=== PATIENT | male | born 1945 | race Caucasian/White ===

== ENCOUNTER 2016-06-03 10:44 | Outpatient (RCR) | payer MEDICARE, OTHER ==
--- OUTSIDE RECORDS SUMMARY | 2016-05-20 10:50 | XMS REPORT | Continuity of Care Document ---
Author Author [facility] Organization [facility] Address Unknown Phone Unavailable Care Team Providers Care Banquet Steward Name Role Phone Mavis Rao PCP [phone] Source Comments Some departments are not documenting in the electronic medical record. If you do not see the information that you expected, contact Release of Information in the Health Information Management department at [phone] for further assistance in locating additional records.[facility] Active Allergies and Adverse Reactions Allergen Noted Date Severity Reactions Comments Flexeril 04/21/2016 High HALLUCINATIONS Current Medications Prescription Sig. Disp. Refills Start End Date Status Date ondansetron (ZOFRAN) 8 mg 1 Tab every 8 hours as 90 Tab 3 06/11/19 Active tablet needed for Nausea. 16 cabozantinib(+) Take 40 mg by mouth 30 Tab 3 02/04/20 Active (CABOMETYX) 40 mg tablet daily. 16 lisinopril (PRINIVIL, Take 1 Tab by mouth 90 Tab 3 02/17/20 Active ZESTRIL) 40 mg tablet daily. 16 LORazepam (ATIVAN) 0.5 mg Take 1 Tab by mouth every 45 Tab 5 03/30/20 Active tablet 6 hours as needed for 16 Nausea. HYDROcodone/acetaminophen Take 1-2 Tabs by mouth 240 Tab 0 04/08/20 Active (+) (NORCO) 10/325 mg every 4 hours as needed 16 tablet for Pain rivaroxaban (XARELTO Take 15 mg by mouth TWICE 51 Tab 0 05/19/19 Active STARTER PACK) 15 mg (42)- daily with food for 21 17 20 mg (9) 51 tablet pack days followed by 20 mg by mouth ONCE daily with food as directed on package. dexamethasone (DECADRON) Take 2 Tabs by mouth 60 Tab 2 05/19/19 Active 4 mg tablet daily. Take with food. 17 oxyCODONE (ROXICODONE, Take 1 Tab by mouth every 150 Tab 0 05/19/19 Active OXY-IR) 15 mg tablet 3 hours as needed for 17 Pain Earliest Fill Date: 05/19/16 finasteride (PROSCAR) 5 Take 1 Tab by mouth at 90 Tab 5 02/10/2009/03 Discontin mg tablet bedtime daily. 16 17 ued cyclobenzaprine Take 1 Tab by mouth three 30 Tab 2 04/08/20 Discontin (FLEXERIL) 10 mg tablet times daily as needed for 16 17 ued Muscle Cramps. methylPREDNIsolone Take medication as 21 Tab 0 04/08/20 04/21/19 Discontin (MEDROL DOSEPAK) 4 mg directed on package for 6 16 17 ued tablet days. Take with food. enoxaparin(+) (LOVENOX) Inject 0.93 mL under the 0.93 mL 0 05/19/19 05/19/19 150 mg/mL syrg syringe skin once for 1 dose. 17 17 Active Problems Problem Noted Date Right-sided chest wall pain 04/08/2016 Overview: 04/08/2016 He is here early as he thoought he must have a new tumor. He has had terrible pain in his right pectoralis muscle for about 2 weeks. He is taking pain pills again and is constipated. CT is negative as is exam except for obvious pain when he moves the pect. I think it is muscle strain so will do medrol dose pack with flexeril and continue his pain meds. Choledocholithiasis 08/12/2015 Overview: 08/11/2015 He is having intermittent abdominal pain. He takes a hydrocodone and it resolves. He has not had this before. He has stones. We will get CT in a month. Hypertension 12/22/2014 Elevated serum creatinine 10/13/2014 [id number] 03/07/2014 Renal cell carcinoma Overview: Renal Mass Bx (07/17/2013): Clear Cell Renal Cell Carcinoma (RCC). (L) Radical Nephrectomy, (L) Colon Resection w/ Primary Anastomosis, multiple Peritoneal Mass Resection -- 08/07/2013; Dr. Alegre & Dr. Snow. 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 Scans in August 2013 showed progression of peritoneal metastatic disease. Consented to participate in clinical trial, [id number] trial "An International Phase 3 Randomized Trial of Autologous Dendritic Cell Immunotherapy (AGS-003) Plus Standard Treatment of Advanced Renal Cell Carcinoma (ADAPT). Randomized to receive Sutent alone. Began Sutent on September 27, 2013. Dose decreased to 37.5 mg in January 2014. Treatment held for several weeks in January 2014 due to perirectal abscess/fistula. Restarted February 24, 2014. Discontinued Sutent on clinical trial on September 01 due to progression of disease. Started high-dose interleukin-2 on September 29, 2014. Repeat scans in November 2014 showed significant progression of disease. Started axitinib in mid-December 2014. 04/28/2015 had to stop axitinib for awhile to have cataract surgery and felt better. Still having lots of diarrhea but not taking immodium. Will have him cut to once a day and take the immodium scheduled instead of PRN. 06/01/2015 He is generally feeling better. He takes immodium twice a day but still has some diarrhea. Agreed to yash more often. Ct shows improvement so he agrees to continue and to increase immodium. RTC in 4 weeks. 07/06/2015 - c/o hoarseness and diarrhea. Continue axitinib and return to clinic in 4 weeks. 08/11/2015 He has same symptoms and does not want to change his dose. Will reimage next month. 09/15/2015 CT scans show progression. Plan to discontinue axitinib and start nivolumab instead. 10/09/2015 Slight increase in dyspnea and chest pain - starting XRT next week. Appears dry today With high calcium - will give fluids and cycle 2 of nivolumab today and recheck CMP in 5 days. RTC in 2 weeks prior to third dose of nivolumab. 10/23/2015 Clinically stable. Completed XRT - only residual complaint is some fatigue. Continue with nivolumab and RTC in 4 weeks. 11/20/2015 Doing well. Proceed with cycle 5 of nivolumab. RTC in 1 month with labs and scans. 12/17/2015 Patient clinically feeling well. Scans show increase disease - ?psuedoprogression? Plan to continue with nivolumab and rescan in 6 weeks. 01/14/2016 Seen to evaluate dyspnea and cough. Minimal increase in symptoms. CXR does not show effusion. Plan to continue with nivolumab today and RTC in 2 weeks as scheduled with repeat scans. 02/03/2016 Scans show mixed response. Patient feeling well. Plan to continue with nivolumab and add in cabozantinib. RTC in 3 weeks with labs. 02/10/2016 Seen on unscheduled visit today as his calcium is high when checked pre nivo. He is asymptomatic except fatigue which he does not feel is worse. He would not agree to stay for admit or IV fluids. I advised him to drink lots of fluids and eat salt. He did agree to see his primary for zometa and fluids. I spoke with Dr Haven Anderson suggested 2-3 liters of normal saline and 3 mg of zometa. She will check his lab again next week and we will go from there. 02/25/2016 Started cabozantinib on 02/11/16; calcium has normalized. Continue nivolumab every 2 weeks and RTC in 4 weeks. 03/24/2016 Having more nausea and diarrhea but manageable. Labs are stable. Plan to continue current treatment. RTC in 4 weeks with labs and scans. 04/08/2016 He is here early due to new pain. CT scans show improvement in all sites of disease. Will continue current therapy. 04/21/2016 Doing well. Pain in right pectoralis muscle has resolved. Some right visual changes; will obtain MRI brain. Continue Nivo Q 2 weeks and RTC in 4 weeks. 05/19/2016 Has developed new shoulder pain as well as brain mets. Will start anti-coag for clot in left atrium. Will start dex and refer to rad onc for XRT to brain. Continue with cabo and nivolumab. Resolved Problems Problem Noted Date Resolved Date Abdominal pain 12/22/2014 06/04/2015 Ileus (HCC) 12/22/2014 05/01/2015 History of interleukin-2 treatment 10/13/2014 10/15/2014 High risk medication use 10/13/2014 10/15/2014 [id number] kidney injury (HCC) 10/02/2014 10/09/2014 SIRS (systemic inflammatory response syndrome) (HCC) 10/01/2014 10/03/2014 Encounter for long-term (current) use of high-risk medication 09/29/2014 10/03/2014 Encounter for antineoplastic immunotherapy 09/29/2014 10/03/2014 Perirectal abscess 02/13/2014 05/01/2015 Other severe protein-calorie malnutrition 08/09/2013 10/09/2014 Most Recent Encounters Date Type Specialty Providers Description 05/19/2016 [facility] Radiology Hemalatha Medina PA-C Arrived Encounter 05/19/2016 [facility] Oncology Isabell Harris MD Encounter 05/19/2016 Office Visit Oncology Isabell Harris MD Renal cell carcinoma, unspecified laterality (Primary Dx) 05/19/2016 [facility] Radiology Hemalatha Meidna PA-C Arrived Encounter 05/19/2016 [facility] Radiology Hemalatha Medina PA-C Arrived Encounter 05/19/2016 Screening Form 05/19/2016 Screening Form 05/16/2016 Telephone Oncology Isabell Harris MD Medication Follow-up 05/11/2016 Telephone Oncology Isabell Harris MD Claudication 05/10/2016 Orders Only Oncology Hemalatha Medina PA-C 05/05/2016 [facility] Oncology Isabell Harris MD Encounter 05/05/2016 [facility] Oncology Isabell Harris MD Encounter 04/26/2016 Orders Only Oncology Hemalatha Medina PA-C 04/21/2016 [facility] Oncology Isabell Harris MD Encounter 04/21/2016 Office Visit Oncology Isabell Harris MD Renal cell carcinoma, unspecified laterality (HCC) (Primary Dx) 04/21/2016 Nurse Only Oncology Isabell Harris MD Renal cell carcinoma, unspecified laterality (HCC) (Primary Dx) 04/13/2016 Telephone Oncology Isabell Harris MD Altered mental status 04/11/2016 Telephone Oncology Phillip Magana, Medication Problem MB[facility] 04/08/2016 Office Visit Oncology Isabell Harris MD Renal cell carcinoma, unspecified laterality (HCC) (Primary Dx); Right-sided chest wall pain 04/08/2016 [facility] Radiology Hemalatha Medina PA-C Encounter 04/07/2016 Hospital Oncology Isabell Harris MD Encounter 04/07/2016 Hospital Oncology Isabell Harris MD Encounter 04/05/2016 Refill Oncology Isabell Harris MD 04/04/2016 Orders Only Oncology Hemalatha Medina PA-C 04/03/2016 Documentation Oncology Cindy Clark, PHARMD 03/31/2016 Telephone Oncology Isabell Harris MD Muscle Pain 03/30/2016 Refill Oncology Isabell Harris MD 03/28/2016 Orders Only Oncology Hemalatha Medina PA-C 03/24/2016 Hospital Oncology Isabell Harris MD Encounter 03/24/2016 Office Visit Oncology Isabell Harris MD Renal cell carcinoma, unspecified laterality (HCC) (Primary Dx) 03/24/2016 Hospital Oncology Isabell Harris MD Encounter 03/16/2016 Orders Only Oncology Hemalatha Medina PA-C 03/09/2016 [facility] Oncology Hemalatha Medina PA-C Encounter 03/09/2016 [facility] Oncology Hemalatha Medina PA-C Encounter 03/01/2016 Orders Only Oncology Hemalatha Medina PA-C 02/25/2016 [facility] Oncology Hemalatha Medina PA-C Encounter 02/25/2016 Office Visit Oncology Hemalatha Medina PA-C Renal cell carcinoma, unspecified laterality (HCC) (Primary Dx) 02/25/2016 Nurse Only Oncology Hemalatha Medina PA-C Renal cell carcinoma, unspecified laterality (HCC) (Primary Dx) Immunizations Name Dates Previously Given Next Due Flu Vaccine 01/14/2016, 01/16/2014 Quadrivalent=>3 Yo (Preservative Free) Social History Tobacco Use Types Packs/Day Years Used Date Former Smoker Cigarettes 2 15 Quit: 04/17/1974 Smokeless Tobacco: Former User Comments: chewed occasionally greater than 30 years ago Alcohol Use Drinks/Week oz/Week Comments Yes 0.0 no alcohol since nephrectomy Last Filed Vital Signs Vital Sign Reading Time Taken Blood Pressure 154/89 05/19/2016 1:08 PM [facility] Pulse 95 05/19/2016 1:08 PM [facility] Temperature 36.3 C (97.4 F) 05/19/2016 1:08 PM [facility] Respiratory Rate 16 05/19/2016 1:08 PM [facility] Height 1.829 m (6' 0.01") 05/19/2016 1:08 PM [facility] Weight 93.622 kg (206 lb 6.4 oz) 05/19/2016 1:08 PM [facility] Body Mass Index 27.99 05/19/2016 1:08 PM [facility] Oxygen Saturation 98% 05/19/2016 1:08 PM [facility] Plan of Care Date Type Specialty Providers Description 06/01/2016 Appointment Oncology 06/01/2016 Appointment Oncology Isabell Harris MD [address] [address] [place] [address] [phone] (Fax) 06/01/2016 Appointment Oncology Health Maintenance Due Date Last Done Comments Hepatitis C Screening 1945 Physical (Comprehensive) 1952 Exam Pertussis Vaccine 1956 Tetanus Vaccine 1962 Colorectal Cancer 07/15/1995 Screening Shingles Vaccine 2005 Prevnar/Pneumovax (#1) 2010 Influenza Vaccine 12/16/2016 01/14/2016, 01/16/2014 Procedures from Last 3 Months Procedure Name Priority Date/Time Associated Diagnosis Comments PROCEDURES-SCAN 02/26/2016 Results for this 8:16 AM [facility] procedure are in the results section. PROCEDURES-SCAN 02/26/2016 Results for this 8:16 AM [facility] procedure are in the results section. Results from Last 3 Months CTA CHEST WO/W CONTRAST+POST IMPRESSION (05/19/2016 2:59 PM) Impressions 1. No CT evidence of pulmonary embolus. 2. Slight increase in size of the thrombus within the left atrium which has been present since February 2015. 3. No significant change to mild progression of widespread pulmonary and pleural metastatic disease. 4. Metastatic disease involving the crux of the diaphragm and right adrenal gland have mildly increased. Metastatic disease in the left upper quadrant of the abdomen has not changed. 5. Increase in small bilateral pleural effusions. These findings were discussed with Dr. Harris by telephone at 3:55 PM May 19, 2016 Approved by Sunny Funez MD on 05/19/2016 3:56 PM By my electronic signature, I attest that I have personally reviewed the images for this examination and formulated the interpretations and opinions expressed in this report Finalized by Kane Hummel M.D. on 05/19/2016 4:11 PM. Dictated by Sunny Funez MD on 05/19/2016 3:00 PM. Narrative CTA CHEST Clinical Indication:Male, 70 years old. Metastatic renal cell carcinoma, left chest pain, dyspnea, concern for pulmonary embolus Technique: Multiple contiguous axial CT images were obtained through the chest following the administration of IV contrast.Post processing coronal and sagittal reconstruction images were made from the axial images.Image post- processing was obtained. IV contrast: 100 mL Isovue 370. Comparison: CT chest/abdomen/pelvis from 04/08/2016. FINDINGS: Lower Neck: Unremarkable Axilla, Mediastinum and Vince: No axillary, mediastinal, or hilar lymphadenopathy identified. Several normal-sized upper mediastinal lymph nodes are unchanged. A mass centered in the right retrocrural space, though which also extends into the crux, has mildly increased in size measuring 6.3 x 2.1 cm (series 2, image 54) compared to 5.9 x 2.0 cm previously. A lesion involving the left crux of the diaphragm (series 2, image 56) is grossly unchanged in size though better visualized on the current exam due to the administration of IV contrast. Heart and Great Vessels: The heart is normal in size without evidence of significant pericardial effusion. The thoracic aorta is normal in caliber. There is a 2.3 cm filling defect within the left atrium to the right of midline that was also present on 02/27/2015 contrast-enhanced exam though slightly larger and more conspicuous and easier to see on the current exam due to its size and less motion artifact as compared to that prior exam.No central pulmonary artery filling defects are noted. Airway, Lungs and Pleura: Slight increase in size of small right pleural effusion and development of a minimal left pleural effusion. There are multiple pulmonary nodules and masses scattered throughout both lungs, some of which are cavitary. These have either not significantly changed to mildly increased in size. The previously measured right middle lobe mass measures 3.8 x 2.3 cm ( series 2, image 35) compared to 3.7 x 2.2 cm previously. Previously measured right upper lobe cavitary lesion (series 2, image 24) now measures 2.2 cm compared to 1.7 previously. The largest mass is medially in the right lower lobe measuring 6.0 x 5.4 cm (series 2, image 38) compared to 6.0 x 4.7 cm. Some of these nodules either arise from the pleura or abut the pleura. Upper Abdomen: Prior left nephrectomy noted. Slight increase in size in small nodule in the right adrenal gland. There is mild gastrohepatic ligament lymphadenopathy which is unchanged. A nodule abutting the tail of the pancreas and an additional nodule just anterior the spleen have not significantly changed in size. Chest Wall and Osseous Structures: No destructive osseous lesions identified. Procedure Note Interface, Radiant Results - Irasema May 19, 2016 4:14 PM INVESTIGATOR VICE CTA CHEST Clinical Indication: Male, 70 years old. Metastatic renal cell carcinoma, left chest pain, dyspnea, concern for pulmonary embolus Technique: Multiple contiguous axial CT images were obtained through the chest following the administration of IV contrast. Post processing coronal and sagittal reconstruction images were made from the axial images. Image post- processing was obtained. IV contrast: 100 mL Isovue 370. Comparison: CT chest/abdomen/pelvis from 04/08/2016. FINDINGS: Lower Neck: Unremarkable Axilla, Mediastinum and Vince: No axillary, mediastinal, or hilar lymphadenopathy identified. Several normal-sized upper mediastinal lymph nodes are unchanged. A mass centered in the right retrocrural space, though which also extends into the crux, has mildly increased in size measuring 6.3 x 2.1 cm (series 2, image 54) compared to 5.9 x 2.0 cm previously. A lesion involving the left crux of the diaphragm (series 2, image 56) is grossly unchanged in size though better visualized on the current exam due to the administration of IV contrast. Heart and Great Vessels: The heart is normal in size without evidence of significant pericardial effusion. The thoracic aorta is normal in caliber. There is a 2.3 cm filling defect within the left atrium to the right of midline that was also present on 02/27/2015 contrast-enhanced exam though slightly larger and more conspicuous and easier to see on the current exam due to its size and less motion artifact as compared to that prior exam. No central pulmonary artery filling defects are noted. Airway, Lungs and Pleura: Slight increase in size of small right pleural effusion and development of a minimal left pleural effusion. There are multiple pulmonary nodules and masses scattered throughout both lungs, some of which are cavitary. These have either not significantly changed to mildly increased in size. The previously measured right middle lobe mass measures 3.8 x 2.3 cm ( series 2, image 35) compared to 3.7 x 2.2 cm previously. Previously measured right upper lobe cavitary lesion (series 2, image 24) now measures 2.2 cm compared to 1.7 previously. The largest mass is medially in the right lower lobe measuring 6.0 x 5.4 cm (series 2, image 38) compared to 6.0 x 4.7 cm. Some of these nodules either arise from the pleura or abut the pleura. Upper Abdomen: Prior left nephrectomy noted. Slight increase in size in small nodule in the right adrenal gland. There is mild gastrohepatic ligament lymphadenopathy which is unchanged. A nodule abutting the tail of the pancreas and an additional nodule just anterior the spleen have not significantly changed in size. Chest Wall and Osseous Structures: No destructive osseous lesions identified. IMPRESSION 1. No CT evidence of pulmonary embolus. 2. Slight increase in size of the thrombus within the left atrium which has been present since February 2015. 3. No significant change to mild progression of widespread pulmonary and pleural metastatic disease. 4. Metastatic disease involving the crux of the diaphragm and right adrenal gland have mildly increased. Metastatic disease in the left upper quadrant of the abdomen has not changed. 5. Increase in small bilateral pleural effusions. These findings were discussed with Dr. Harris by telephone at 3:55 PM May 19, 2016 Approved by Sunny Funez MD on 05/19/2016 3:56 PM By my electronic signature, I attest that I have personally reviewed the images for this examination and formulated the interpretations and opinions expressed in this report Finalized by Kane Hummel M.D. on 05/19/2016 4:11 PM. Dictated by Sunny Funez MD on 05/19/2016 3:00 PM. MRI HEAD WO/W CONTRAST (05/19/2016 12:00 PM) Impressions 1. Numerous supratentorial and cerebellar subtle enhancing lesions with associated FLAIR hyperintensity most consistent with metastatic disease. 2. Additional extra-axial left parafalcine enhancing lesion most consistent with dural metastasis. Findings discussed with patient's nurse practitioner, Hemalatha Medina, via telephone at 1:50 PM 05/19/2016. Approved by Amaury Donis M.D. on 05/19/2016 2:05 PM By my electronic signature, I attest that I have personally reviewed the images for this examination and formulated the interpretations and opinions expressed in this report Finalized by Shaka Freed M.D. on 05/19/2016 3:32 PM. Dictated by Amaury Donis M.D. on 05/19/2016 1:43 PM. Narrative EXAM: MRI BRAIN HISTORY: visual changes in right eye, met renal cell carcinoma TECHNIQUE: Multiplanar and multisequence MR imaging of the head was performed. This was done both before and after the administration of gadolinium contrast. COMPARISON: MRI brain 09/20/2014. FINDINGS: There is been interval development of multiple ill-defined subtle enhancing lesions throughout the bilateral hemispheres with associated FLAIR hyperintensity. Manager Photo left posterior occipital enhancing lesion measures 0.6 cm (series 9, image 11). Additional subtle enhancing areas with associated FLAIR hyperintensity noted (series 9, image 18, series 10, image 25) . There are at least 3 ill-defined cerebellar enhancing lesions with largest product support representative inferior lesion measuring 0.8 cm (series 11, image 22). Heterogeneously enhancing left parafalcine extra-axial mass measures 1.0 cm ( series 10, image 24). The ventricles and subarachnoid spaces are normal in size and configuration. No midline shift or mass effect. The vascular flow-voids are unremarkable. Diffusion weighted imaging is not indicative of acute or recent infarct. Procedure Note Interface, Radiant Results - Irasema May 19, 2016 3:35 PM [facility] EXAM: MRI BRAIN HISTORY: visual changes in right eye, met renal cell carcinoma TECHNIQUE: Multiplanar and multisequence MR imaging of the head was performed. This was done both before and after the administration of gadolinium contrast. COMPARISON: MRI brain 09/20/2014. FINDINGS: There is been interval development of multiple ill-defined subtle enhancing lesions throughout the bilateral hemispheres with associated FLAIR hyperintensity. Manager Photo left posterior occipital enhancing lesion measures 0.6 cm (series 9, image 11). Additional subtle enhancing areas with associated FLAIR hyperintensity noted (series 9, image 18, series 10, image 25) . There are at least 3 ill-defined cerebellar enhancing lesions with largest product support representative inferior lesion measuring 0.8 cm (series 11, image 22). Heterogeneously enhancing left parafalcine extra-axial mass measures 1.0 cm ( series 10, image 24). The ventricles and subarachnoid spaces are normal in size and configuration. No midline shift or mass effect. The vascular flow-voids are unremarkable. Diffusion weighted imaging is not indicative of acute or recent infarct. IMPRESSION 1. Numerous supratentorial and cerebellar subtle enhancing lesions with associated FLAIR hyperintensity most consistent with metastatic disease. 2. Additional extra-axial left parafalcine enhancing lesion most consistent with dural metastasis. Findings discussed with patient's nurse practitioner, Hemalatha Medina, via telephone at 1:50 PM 05/19/2016. Approved by Amaury Donis M.D. on 05/19/2016 2:05 PM By my electronic signature, I attest that I have personally reviewed the images for this examination and formulated the interpretations and opinions expressed in this report Finalized by Shaka Freed M.D. on 05/19/2016 3:32 PM. Dictated by Amaury Donis M.D. on 05/19/2016 1:43 PM. TSH WITH FREE T4 REFLEX (05/19/2016 11:30 AM)Only the most recent of 2 results within the time period is included. Component Value Range TSH 1.483 0.35-5.00 MCU/ML CBC AND DIFF (05/19/2016 11:30 AM)Only the most recent of 7 results within the time period is included. Component Value Range White Blood Cells 9.0 4.5-11.0 K/UL RBC 4.43 4.4-5.5 M/UL Hemoglobin 14.6 13.5-16.5 GM/DL Hematocrit 42.6 40-50 % MCV 96.1 80-100 FL MCH 32.9 26-34 PG MCHC 34.2 32.0-36.0 G/DL RDW 22.2 (H) 11-15 % Platelet Count 282 150-400 K/UL MPV 6.7 (L) 7-11 FL Neutrophils 75 41-77 % Lymphocytes 14 (L) 24-44 % Monocytes 8 4-12 % Eosinophils 2 0-5 % Basophils 1 0-2 % Absolute Neutrophil Count 6.80 1.8-7.0 K/UL Absolute Lymph Count 1.30 1.0-4.8 K/UL Absolute Monocyte Count 0.70 0-0.80 K/UL Absolute Eosinophil Count 0.20 0-0.45 K/UL Absolute Basophil Count 0.10 0-0.20 K/UL COMPREHENSIVE METABOLIC PANEL (05/19/2016 11:30 AM)Only the most recent of 7 results within the time period is included. Component Value Range Sodium 133 (L) 137-147 MMOL/L Potassium 4.7 3.5-5.1 MMOL/L Chloride 98 98-110 MMOL/L Glucose 96 70-100 MG/DL Blood Urea Nitrogen 22 7-25 MG/DL Creatinine 1.61 (H) 0.4-1.24 MG/DL Calcium 9.7 8.5-10.6 MG/DL Total Protein 7.7 6.0-8.0 G/DL Total Bilirubin 0.5 0.3-1.2 MG/DL Albumin 4.2 3.5-5.0 G/DL Alk Phosphatase 104 25-110 U/L AST (SGOT) 32 7-40 U/L CO2 30 21-30 MMOL/L ALT (SGPT) 42 7-56 U/L Anion Gap 5 3-12 eGFR Non 43 (L)Comment: >60 mL/min The eGFR is not validated for use in drug dosing adjustments. Continue to use estimated creatinine clearance per dosing reference text. Please contact the Clinical Pharmacist for questions. eGFR 52 (L)Comment: >60 mL/min The eGFR is not validated for use in drug dosing adjustments. Continue to use estimated creatinine clearance per dosing reference text. Please contact the Clinical Pharmacist for questions. CT ABD/PELV WO CONTRAST (04/08/2016 11:17 AM) Impressions CT CHEST: 1. Improved pulmonary metastases with development of cavitation in some nodules , most consistent with necrosis. 2. Improved retrocrural lymphadenopathy. CT ABDOMEN AND PELVIS: 1. Improvement in splenic, peripancreatic, and peritoneal/retroperitoneal metastases.No new areas of metastatic disease are identified. Approved by Deann Gorman M.D. on 04/08/2016 12:27 PM By my electronic signature, I attest that I have personally reviewed the images for this examination and formulated the interpretations and opinions expressed in this report Finalized by Ibrahima Sewell M.D. on 04/08/2016 1:25 PM. Dictated by Deann Gorman M.D. on 04/08/2016 11:[address] CHEST, ABDOMEN, AND PELVIS Clinical Indication: 70-year-old male for restaging of renal cell carcinoma. Evaluate response to therapy. Technique: Multiple contiguous axial images were obtained through the chest, abdomen, and pelvis without IV contrast material. Post processing coronal and sagittal reconstruction images were made from the axial images. IV contrast: None. Bowel contrast:None Comparison: 02/03/2016, 12/16/2015 FINDINGS: CT CHEST: Evaluation of the mediastinum and vince, including the vasculature and for lymphadenopathy, is limited in the absence of IV contrast. Lower Neck: Unremarkable Axilla, Mediastinum, and Vince: Normal sized upper mediastinal lymph nodes. Improvement in right retrocrural lymphadenopathy now measuring 5.9 x 2.0 cm, previously 6.4 x 2.4 cm when measured in a similar fashion. Heart and Great Vessels: Normal sized heart without pericardial effusion. Normal caliber thoracic aorta with minimal atherosclerotic calcification. Airway, Lungs, and Pleura: The major airways are patent. Improvement in numerous pulmonary metastases. Target right middle lobe mass measures 3.7 x 2.2 cm (series 2 image 30), previously 4.9 x 3.0 cm. Right upper lobe target lesion measures 1.5 cm with development of cavitation, previously 2.3 cm. There is also decrease in size of the large right lower lobe mass. Improved small right pleural effusion. Chest Wall and Osseous Structures: No aggressive osseous lesion. CT ABDOMEN AND PELVIS: Limited evaluation of the viscera and vasculature in the absence of IV contrast. Liver and Biliary system: The unopacified liver is normal in size. Cholelithiasis. Spleen: Decrease in size of a low-density splenic lesion measuring 3.8 cm ( series 2 image 67), previously 5.3 cm when measured in a similar fashion. Adrenal Glands and Kidneys: No adrenal mass. Previous left nephrectomy. No evidence of recurrent mass in the left renal fossa. Small right renal cyst is unchanged. Pancreas and Retroperitoneum: Decrease in size of a mass abutting the pancreatic tail which measures 3.2 cm (series 2 image 60), previously 4.2 cm. Resolution of left periaortic lymph node with no residual measurable nodule ( described on image 71 at the previous examination). Aorta and Major Vessels: Mild aortoiliac atherosclerotic plaque without aneurysm. Bowel, Mesentery, and Peritoneal space: Decrease in size of retroperitoneal/ peritoneal metastases. Target lesion adjacent to the pancreatic tail mass measures 1.8 cm (series 2 image 62), previously 2.5 cm. A lesion anterior to the spleen which is preferred for future measurement now measures 2.7 cm ( series 2 image 59), previously 3.8 cm when measured in a similar fashion. Complete resolution of an additional metastasis adjacent to the spleen without a measurable nodule (described on image 59 at the previous exam). Pelvis: Normal sized pelvic lymph nodes. Mild prostate enlargement. The partially filled urinary bladder is grossly unremarkable. Abdominal wall and Osseous Structures: No aggressive osseous lesion. Persistent ventral abdominal wall hernia containing nonobstructed bowel. Procedure Note Interface, Radiant Results - MonApr 08, 2016 1:[address] CHEST, ABDOMEN, AND PELVIS Clinical Indication: 70-year-old male for restaging of renal cell carcinoma. Evaluate response to therapy. Technique: Multiple contiguous axial images were obtained through the chest, abdomen, and pelvis without IV contrast material. Post processing coronal and sagittal reconstruction images were made from the axial images. IV contrast: None. Bowel contrast: None Comparison: 02/03/2016, 12/16/2015 FINDINGS: CT CHEST: Evaluation of the mediastinum and vince, including the vasculature and for lymphadenopathy, is limited in the absence of IV contrast. Lower Neck: Unremarkable Axilla, Mediastinum, and Vince: Normal sized upper mediastinal lymph nodes. Improvement in right retrocrural lymphadenopathy now measuring 5.9 x 2.0 cm, previously 6.4 x 2.4 cm when measured in a similar fashion. Heart and Great Vessels: Normal sized heart without pericardial effusion. Normal caliber thoracic aorta with minimal atherosclerotic calcification. Airway, Lungs, and Pleura: The major airways are patent. Improvement in numerous pulmonary metastases. Target right middle lobe mass measures 3.7 x 2.2 cm (series 2 image 30), previously 4.9 x 3.0 cm. Right upper lobe target lesion measures 1.5 cm with development of cavitation, previously 2.3 cm. There is also decrease in size of the large right lower lobe mass. Improved small right pleural effusion. Chest Wall and Osseous Structures: No aggressive osseous lesion. CT ABDOMEN AND PELVIS: Limited evaluation of the viscera and vasculature in the absence of IV contrast. Liver and Biliary system: The unopacified liver is normal in size. Cholelithiasis. Spleen: Decrease in size of a low-density splenic lesion measuring 3.8 cm ( series 2 image 67), previously 5.3 cm when measured in a similar fashion. Adrenal Glands and Kidneys: No adrenal mass. Previous left nephrectomy. No evidence of recurrent mass in the left renal fossa. Small right renal cyst is unchanged. Pancreas and Retroperitoneum: Decrease in size of a mass abutting the pancreatic tail which measures 3.2 cm (series 2 image 60), previously 4.2 cm. Resolution of left periaortic lymph node with no residual measurable nodule ( described on image 71 at the previous examination). Aorta and Major Vessels: Mild aortoiliac atherosclerotic plaque without aneurysm. Bowel, Mesentery, and Peritoneal space: Decrease in size of retroperitoneal/ peritoneal metastases. Target lesion adjacent to the pancreatic tail mass measures 1.8 cm (series 2 image 62), previously 2.5 cm. A lesion anterior to the spleen which is preferred for future measurement now measures 2.7 cm ( series 2 image 59), previously 3.8 cm when measured in a similar fashion. Complete resolution of an additional metastasis adjacent to the spleen without a measurable nodule (described on image 59 at the previous exam). Pelvis: Normal sized pelvic lymph nodes. Mild prostate enlargement. The partially filled urinary bladder is grossly unremarkable. Abdominal wall and Osseous Structures: No aggressive osseous lesion. Persistent ventral abdominal wall hernia containing nonobstructed bowel. IMPRESSION CT CHEST: 1. Improved pulmonary metastases with development of cavitation in some nodules , most consistent with necrosis. 2. Improved retrocrural lymphadenopathy. CT ABDOMEN AND PELVIS: 1. Improvement in splenic, peripancreatic, and peritoneal/retroperitoneal metastases. No new areas of metastatic disease are identified. Approved by Deann Gorman M.D. on 04/08/2016 12:27 PM By my electronic signature, I attest that I have personally reviewed the images for this examination and formulated the interpretations and opinions expressed in this report Finalized by Ibrahima Sewell M.D. on 04/08/2016 1:25 PM. Dictated by Deann Gorman M.D. on 04/08/2016 11:[address] CHEST WO CONTRAST (04/08/2016 11:17 AM) [address] CHEST: 1. Improved pulmonary metastases with development of cavitation in some nodules , most consistent with necrosis. 2. Improved retrocrural lymphadenopathy. CT ABDOMEN AND PELVIS: 1. Improvement in splenic, peripancreatic, and peritoneal/retroperitoneal metastases.No new areas of metastatic disease are identified. Approved by Deann Gorman M.D. on 04/08/2016 12:27 PM By my electronic signature, I attest that I have personally reviewed the images for this examination and formulated the interpretations and opinions expressed in this report Finalized by Ibrahima Sewell M.D. on 04/08/2016 1:25 PM. Dictated by Deann Gorman M.D. on 04/08/2016 11:[address] CHEST, ABDOMEN, AND PELVIS Clinical Indication: 70-year-old male for restaging of renal cell carcinoma. Evaluate response to therapy. Technique: Multiple contiguous axial images were obtained through the chest, abdomen, and pelvis without IV contrast material. Post processing coronal and sagittal reconstruction images were made from the axial images. IV contrast: None. Bowel contrast:None Comparison: 02/03/2016, 12/16/2015 FINDINGS: CT CHEST: Evaluation of the mediastinum and vince, including the vasculature and for lymphadenopathy, is limited in the absence of IV contrast. Lower Neck: Unremarkable Axilla, Mediastinum, and Vince: Normal sized upper mediastinal lymph nodes. Improvement in right retrocrural lymphadenopathy now measuring 5.9 x 2.0 cm, previously 6.4 x 2.4 cm when measured in a similar fashion. Heart and Great Vessels: Normal sized heart without pericardial effusion. Normal caliber thoracic aorta with minimal atherosclerotic calcification. Airway, Lungs, and Pleura: The major airways are patent. Improvement in numerous pulmonary metastases. Target right middle lobe mass measures 3.7 x 2.2 cm (series 2 image 30), previously 4.9 x 3.0 cm. Right upper lobe target lesion measures 1.5 cm with development of cavitation, previously 2.3 cm. There is also decrease in size of the large right lower lobe mass. Improved small right pleural effusion. Chest Wall and Osseous Structures: No aggressive osseous lesion. CT ABDOMEN AND PELVIS: Limited evaluation of the viscera and vasculature in the absence of IV contrast. Liver and Biliary system: The unopacified liver is normal in size. Cholelithiasis. Spleen: Decrease in size of a low-density splenic lesion measuring 3.8 cm ( series 2 image 67), previously 5.3 cm when measured in a similar fashion. Adrenal Glands and Kidneys: No adrenal mass. Previous left nephrectomy. No evidence of recurrent mass in the left renal fossa. Small right renal cyst is unchanged. Pancreas and Retroperitoneum: Decrease in size of a mass abutting the pancreatic tail which measures 3.2 cm (series 2 image 60), previously 4.2 cm. Resolution of left periaortic lymph node with no residual measurable nodule ( described on image 71 at the previous examination). Aorta and Major Vessels: Mild aortoiliac atherosclerotic plaque without aneurysm. Bowel, Mesentery, and Peritoneal space: Decrease in size of retroperitoneal/ peritoneal metastases. Target lesion adjacent to the pancreatic tail mass measures 1.8 cm (series 2 image 62), previously 2.5 cm. A lesion anterior to the spleen which is preferred for future measurement now measures 2.7 cm ( series 2 image 59), previously 3.8 cm when measured in a similar fashion. Complete resolution of an additional metastasis adjacent to the spleen without a measurable nodule (described on image 59 at the previous exam). Pelvis: Normal sized pelvic lymph nodes. Mild prostate enlargement. The partially filled urinary bladder is grossly unremarkable. Abdominal wall and Osseous Structures: No aggressive osseous lesion. Persistent ventral abdominal wall hernia containing nonobstructed bowel. Procedure Note Interface, Radiant Results - MonApr 08, 2016 1:[address] V[address] CHEST, ABDOMEN, AND PELVIS Clinical Indication: 70-year-old male for restaging of renal cell carcinoma. Evaluate response to therapy. Technique: Multiple contiguous axial images were obtained through the chest, abdomen, and pelvis without IV contrast material. Post processing coronal and sagittal reconstruction images were made from the axial images. IV contrast: None. Bowel contrast: None Comparison: 02/03/2016, 12/16/2015 FINDINGS: CT CHEST: Evaluation of the mediastinum and vince, including the vasculature and for lymphadenopathy, is limited in the absence of IV contrast. Lower Neck: Unremarkable Axilla, Mediastinum, and Vince: Normal sized upper mediastinal lymph nodes. Improvement in right retrocrural lymphadenopathy now measuring 5.9 x 2.0 cm, previously 6.4 x 2.4 cm when measured in a similar fashion. Heart and Great Vessels: Normal sized heart without pericardial effusion. Normal caliber thoracic aorta with minimal atherosclerotic calcification. Airway, Lungs, and Pleura: The major airways are patent. Improvement in numerous pulmonary metastases. Target right middle lobe mass measures 3.7 x 2.2 cm (series 2 image 30), previously 4.9 x 3.0 cm. Right upper lobe target lesion measures 1.5 cm with development of cavitation, previously 2.3 cm. There is also decrease in size of the large right lower lobe mass. Improved small right pleural effusion. Chest Wall and Osseous Structures: No aggressive osseous lesion. CT ABDOMEN AND PELVIS: Limited evaluation of the viscera and vasculature in the absence of IV contrast. Liver and Biliary system: The unopacified liver is normal in size. Cholelithiasis. Spleen: Decrease in size of a low-density splenic lesion measuring 3.8 cm ( series 2 image 67), previously 5.3 cm when measured in a similar fashion. Adrenal Glands and Kidneys: No adrenal mass. Previous left nephrectomy. No evidence of recurrent mass in the left renal fossa. Small right renal cyst is unchanged. Pancreas and Retroperitoneum: Decrease in size of a mass abutting the pancreatic tail which measures 3.2 cm (series 2 image 60), previously 4.2 cm. Resolution of left periaortic lymph node with no residual measurable nodule ( described on image 71 at the previous examination). Aorta and Major Vessels: Mild aortoiliac atherosclerotic plaque without aneurysm. Bowel, Mesentery, and Peritoneal space: Decrease in size of retroperitoneal/ peritoneal metastases. Target lesion adjacent to the pancreatic tail mass measures 1.8 cm (series 2 image 62), previously 2.5 cm. A lesion anterior to the spleen which is preferred for future measurement now measures 2.7 cm ( series 2 image 59), previously 3.8 cm when measured in a similar fashion. Complete resolution of an additional metastasis adjacent to the spleen without a measurable nodule (described on image 59 at the previous exam). Pelvis: Normal sized pelvic lymph nodes. Mild prostate enlargement. The partially filled urinary bladder is grossly unremarkable. Abdominal wall and Osseous Structures: No aggressive osseous lesion. Persistent ventral abdominal wall hernia containing nonobstructed bowel. IMPRESSION CT CHEST: 1. Improved pulmonary metastases with development of cavitation in some nodules , most consistent with necrosis. 2. Improved retrocrural lymphadenopathy. CT ABDOMEN AND PELVIS: 1. Improvement in splenic, peripancreatic, and peritoneal/retroperitoneal metastases. No new areas of metastatic disease are identified. Approved by Deann Gorman M.D. on 04/08/2016 12:27 PM By my electronic signature, I attest that I have personally reviewed the images for this examination and formulated the interpretations and opinions expressed in this report Finalized by Ibrahima Sewell M.D. on 04/08/2016 1:25 PM. Dictated by Deann Gorman M.D. on 04/08/2016 11:51 AM. THYROID STIMULATING HORMONE-TSH (04/07/2016 10:44 AM) Component Value Range TSH 2.804 0.35-5.00 MCU/ML PROCEDURES-SCAN (02/26/2016 8:16 AM) Narrative Ordered by an unspecified provider. PROCEDURES-SCAN (02/26/2016 8:16 AM) Narrative Ordered by an unspecified provider.
[~2016-06-03 10:44] MED LIST: BTH25T1 PO; CIPR750T23 PO; DCS100C PO; HYDR118S10 PO; IBUP-15 PO; LISI40TA PO; OMEP-10 PO; TRAM50TA2 PO
== END 2016-08-18 | disposition home or self-care (01) ==
LOC: ONC 10:44
PROVIDERS: ATTEND Radiology Radiation Oncology
DX: Z51.0 Encounter for antineoplastic radiation therapy (principal); C79.31 Secondary malignant neoplasm of brain; C64.1 Malignant neoplasm of right kidney, except renal pelvis; C78.01 Secondary malignant neoplasm of right lung; C79.51 Secondary malignant neoplasm of bone; C78.89 Secondary malignant neoplasm of other digestive organs; C78.6 Secondary malignant neoplasm of retroperitoneum and peritoneum; I10 Essential (primary) hypertension; N40.0 Benign prostatic hyperplasia without lower urinary tract symptoms; Z87.891 Personal history of nicotine dependence; Z79.899 Other long term (current) drug therapy
CPT/HCPCS: 77290; 77295; 77332; 77334; 77336; 77417; 77470; 99214